=== PATIENT | female | born 1990 | race Caucasian/White ===

== ENCOUNTER → 2016-11-27 | Day surgery (SDC) | payer OTHER ==
[~2016-11-27] MED LIST: DIAZ5TAB PO; FENTANYL PF 100 MCG/2 ML VIAL. IV PRN; FENTANYL PF 100 MCG/2 ML VIAL. ONE; HYDROMORPHONE 2 MG/ML VIAL. IV PRN; IV RINGERS,LACTATED 1000ML 1,000 ML IV SCH; LEVO25TA4 PO; LIDOCAINE 1% 1 ML SYRINGE. ID PRN; LIDOCAINE 2% PF Vial for OR 5 ML VIAL. ONE; MORPHINE SULFATE 2 MG/ML DISP.SYRIN. IV PRN; ONDANSETRON PF 4 MG/2 ML VIAL. IV PRN; PANT40TA5 PO; PROCHLORPERAZINE 10 MG/2 ML VIAL. IV PRN; PROPOFOL 20 ML IV ONE; RANI150T6 PO; SUCR1TAB29 PO
[2016-11-27 08:58] LABS: NEG OBC UR NEG; POS OBC UR POS
--- NOTE | 2016-11-27 22:39 | HP ---
ADMIT DATE: 11/27/2016 REFERRING PHYSICIAN: Danette Horner MD HISTORY OF PRESENT ILLNESS: This is a 26-year-old female with past medical history significant for anxiety, depression, history of peptic ulcer disease, ____ abdominal pain, seen with over 40-pound weight loss. Previous hepatobiliary imaging including ultrasound and ____ scan were unrevealing for cholelithiasis or biliary dyskinesia without symptom reproduction with the Kinevac. She does continue to have problems maintaining her weight and is here today for further evaluation. PAST MEDICAL HISTORY: Anxiety, depression, peptic ulcer disease, palpitation. ALLERGIES: None. MEDICATIONS: Include Valium, levothyroxine, pantoprazole, and Carafate. SOCIAL HISTORY: She is a smoker. FAMILY HISTORY: Noncontributory. REVIEW OF SYSTEMS: As per records, with the thyroid disease noted. PHYSICAL EXAMINATION: GENERAL: Reveals a thin female, alert, cooperative, mild distress. VITAL SIGNS: Temperature 99.9, pulse 60, respirations 18. HEENT: Normocephalic and atraumatic head. Pupils and extraocular muscles not tested. Sclerae anicteric. NECK: Supple. LUNGS: Clear. CARDIOVASCULAR: Reveals S1, S2 without S3, S4 or appreciable murmur. ABDOMEN: Reveals a soft abdomen, normal bowel sounds, without appreciable hepatosplenomegaly. EXTREMITIES: Reveals no cyanosis, clubbing or edema. IMPRESSION: Epigastric abdominal pain with weight loss. The etiology is to be determined. Differential includes peptic ulcer disease, celiac disease, eosinophilic gastroenteritis, gastroparesis, chronic pancreatitis. We therefore recommend upper endoscopy. If this unrevealing, then a gastric emptying study and small bowel series would be pursued. Thank you, Danette Hornre, for allowing us to consult and participate in this patient's care. TIFFANY BONILLA MD DR: FLO/kisha JOB#: [id number] / [id number] DANETTE Brown MD
--- NOTE | 2016-11-30 13:50 | PATHOLOGY ---
PATHOLOGY REPORT * * * * * * * * FINAL DIAGNOSIS: Duodenal biopsies: - No significant pathologic abnormalities. COMMENT: Sections of the duodenal biopsy reveal segments of small intestine and duodenal mucosa. Where best oriented, the mucosal villi appear normal and show no sprue-like changes or significant inflammatory changes. There is no evidence of Whipple's disease. (JPM:all; d/t: 11/30/2016) REPORT ELECTRONICALLY SIGNED BY: Thomas Ruiz M.D. DATE/TIME: 11/30/2016 13:49 * * * * * * * * GROSS PATHOLOGY: Received in formalin labeled "Ellen Kumar and duodenal biopsies," are multiple segments of [place] castillo soft tissue measuring 2.4 x 0.3 x 0.3 cm in aggregate dimensions and ranging from 0.2 to 0.6 cm in maximum dimension. The specimen is submitted entirely in cassette A1. (TTL; 11/27/2016) INITIAL CPT CODE(S): A; 24417 Professional services performed by [facility] [place] [address] Technical services performed by [facility] at [address] [place] [address] [address] [address]. SPECIMEN(S) RECEIVED: A.Duodenal biopsies, r/o Whipple's, r/o celiac CLINICAL HISTORY: Abdominal pain PATIENT: ELLEN KUMAR /AGE: 503/28/1990 (Age: 26) PATIENT #: [id number] ALT CASE #: SPECIMEN COLLECTION DATE: 11/27/2016 SPECIMEN RECEIVED DATE: 11/27/2016 [facility] - [address] [place] [address] - PHONE: [phone] * * * END OF REPORT * * *
== END ==
LOC: ENDOS 08:21
PROVIDERS: ATTEND Internal Medicine Gastroenterology
DX: K29.50 Unspecified chronic gastritis without bleeding (principal); K31.89 Other diseases of stomach and duodenum; K52.81 Eosinophilic gastritis or gastroenteritis; K31.84 Gastroparesis; K86.1 Other chronic pancreatitis; F32.9 Major depressive disorder, single episode, unspecified; F41.9 Anxiety disorder, unspecified; D64.9 Anemia, unspecified; F17.200 Nicotine dependence, unspecified, uncomplicated; Z87.11 Personal history of peptic ulcer disease
CPT/HCPCS: 43239; 81025; J2704; J3010

== ENCOUNTER → 2018-03-29 | Outpatient (CLI) | payer OTHER | END | disposition home or self-care (01) | LOC: RAD 11:27 | DX: M25.512 Pain in left shoulder (principal) | CPT/HCPCS: 73030 ==

== ENCOUNTER 2020-07-16 01:10 | Emergency (ER) | payer OTHER ==
[~2020-07-16 01:10] MED LIST changes: -FENTANYL PF 100 MCG/2 ML VIAL. IV PRN; -FENTANYL PF 100 MCG/2 ML VIAL. ONE; -HYDROMORPHONE 2 MG/ML VIAL. IV PRN; -IV RINGERS,LACTATED 1000ML 1,000 ML IV SCH; -LIDOCAINE 1% 1 ML SYRINGE. ID PRN; -LIDOCAINE 2% PF Vial for OR 5 ML VIAL. ONE; -MORPHINE SULFATE 2 MG/ML DISP.SYRIN. IV PRN; -ONDANSETRON PF 4 MG/2 ML VIAL. IV PRN; -PANT40TA5 PO; +PANT40TA77 PO; -PROCHLORPERAZINE 10 MG/2 ML VIAL. IV PRN; -PROPOFOL 20 ML IV ONE; +RANI-376 PO; -RANI150T6 PO; -SUCR1TAB29 PO; +SUCR1TAB35 PO
[2020-07-16] MEDS ORDERED: diazePAM 2 MG TABLET PO ONE (01:45)
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
[2020-07-16 02:46] VITALS: BP 101/63
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
== END 2020-07-16 03:13 | disposition home or self-care (01) ==
LOC: ER 01:10
DX: G89.11 Acute pain due to trauma (principal); R10.84 Generalized abdominal pain; Y08.89XA Assault by other specified means, initial encounter; Y93.89 Activity, other specified; Y92.89 Other specified places as the place of occurrence of the external cause; Y99.8 Other external cause status
CPT/HCPCS: 74018; 81025; 99283